=== PATIENT | male | born 2000 | race African-American/Black ===

== ENCOUNTER 2021-05-21 10:42 | Emergency (ER) | payer OTHER, SELFPAY ==
[~2021-05-21] VITALS: Ht 193 cm; Wt 65.8 kg
[2021-05-21 10:48] VITALS: BP 113/71
--- NOTE | 2021-05-21 10:52 | NUR ---
TENT 2
--- NOTE | 2021-05-21 10:55 | NUR ---
BIB SELF C/O COUGH X 3 WEEKS. DENIES N/V/D; SKIN IS PINK/WARM/DRY; AAOX4 WITH EVEN AND STEADY GAIT; LUNGS CLEAR BL; HR EVEN AND REGULAR; PT DENIES ANY FEVER, CP, SOB AT THIS TIME; PATIENT STATES PAIN OF 0/10 AT THIS TIME.
--- NOTE | 2021-05-21 11:09 | NUR ---
Patient being evaluated by YAS LUGO at [facility].
--- NOTE | 2021-05-21 11:35 | NUR ---
COVID PCR SWAB DONE.
[2021-05-21] MEDS ORDERED: ACET-10509 PO (12:38)
[2021-05-21] MEDS ORDERED: PROM118S5 PO (12:38)
[2021-05-21 12:55] VITALS: BP 113/71
--- NOTE | 2021-05-21 12:55 | NUR ---
Patient discharged with v/s stable. Written and verbal after care instructions given and explained. Patient alert, oriented and verbalized understanding of instructions. Ambulatory with steady gait. All questions addressed prior to discharge. ID band removed. Patient advised to follow up with PMD. Rx of TYLENOL & PROMETHAZINE given. Patient educated on indication of medication including possible reaction and side effects. Opportunity to ask questions provided and answered.
== END 2021-05-21 12:55 | disposition home or self-care (01) ==
LOC: MED 10:42
DX: J06.9 Acute upper respiratory infection, unspecified (principal); Z20.822 Contact with and (suspected) exposure to COVID-19; F17.200 Nicotine dependence, unspecified, uncomplicated; Z79.899 Other long term (current) drug therapy
CPT/HCPCS: 71045; 99284; U0003

== ENCOUNTER 2021-06-07 08:01 | Emergency (ER) | payer OTHER, SELFPAY ==
[~2021-06-07] VITALS: Ht 193 cm; Wt 71.7 kg
[~2021-06-07 08:01] MED LIST: ACET-10509 PO; PROM118S5 PO
[2021-06-07 08:05] VITALS: BP 126/62
--- NOTE | 2021-06-07 08:14 | NUR ---
PT AMBULATED TO ER BED 3 WITH A STEADY GAIT.
--- NOTE | 2021-06-07 08:23 | NUR ---
20 Y/O MALE C/O PRODUCTIVE COUGH WITH YELLOW PHLEGM X 4 WEEKS. PT SEEN HERE X15 DAYS AGO, DX WITH URI. PT PRESCRIBED PROMETHAZINE WITH NO RELIEF. PT STATES MUCINEX WITH MILD RELIEF. DENIES FEVER/CHILLS, DENIES N/V/D. DENIES PMH ALLERGIES: PCN
--- NOTE | 2021-06-07 08:36 | NUR ---
CEMETERY WARDEN AT PT BEDSIDE.
[2021-06-07] MEDS ORDERED: PRED20TA5 PO (09:11)
[2021-06-07] MEDS ORDERED: FLONAS NS (09:29)
[2021-06-07] MEDS ORDERED: GUAI-646 PO (09:29)
[2021-06-07 09:33] VITALS: BP 124/67
--- NOTE | 2021-06-07 09:33 | NUR ---
Patient discharged with v/s stable. Written and verbal after care instructions given COUGH and explained. Patient alert, oriented and verbalized understanding of instructions. Ambulatory with steady gait. All questions addressed prior to discharge. ID band removed. Patient advised to follow up with PMD. Rx of PREDNISONE, FLONASE, AND MUCINEX given. Patient educated on indication of medication including possible reaction and side effects. Opportunity to ask questions provided and answered.
== END 2021-06-07 09:34 | disposition home or self-care (01) ==
LOC: MED 08:01
DX: R05.9 Cough, unspecified (principal); F17.290 Nicotine dependence, other tobacco product, uncomplicated; Z71.6 Tobacco abuse counseling; Z88.0 Allergy status to penicillin; Z79.899 Other long term (current) drug therapy
CPT/HCPCS: 71045; 99283